=== PATIENT | female | born 1990 | race Caucasian/White ===

== ENCOUNTER 2019-04-08 12:02 | Emergency (ER) | payer OTHER, MEDICAID ==
[~2019-04-08] VITALS: Ht 149.9 cm; Wt 72.1 kg
[2019-04-08 13:16] VITALS: BP 145/80
== END 2019-04-08 13:17 | disposition home or self-care (01) ==
LOC: M.ERS 12:02
DX: S60.022A Contusion of left index finger without damage to nail, initial encounter (principal); S60.032A Contusion of left middle finger without damage to nail, initial encounter; Z98.890 Other specified postprocedural states; Z88.0 Allergy status to penicillin; Z88.1 Allergy status to other antibiotic agents; Z88.8 Allergy status to other drugs, medicaments and biological substances; W23.0XXA Caught, crushed, jammed, or pinched between moving objects, initial encounter; Y93.89 Activity, other specified; Y92.89 Other specified places as the place of occurrence of the external cause; Y99.8 Other external cause status

== ENCOUNTER 2020-08-30 09:41 | Emergency (ER) | payer OTHER, MEDICAID ==
[~2020-08-30] VITALS: Ht 149.9 cm; Wt 79.4 kg
[2020-08-30] MEDS ORDERED: FLEXERIL PO (11:02)
[2020-08-30 11:12] VITALS: BP 125/65
== END 2020-08-30 11:13 | disposition home or self-care (01) ==
LOC: M.ERS 09:41
DX: S46.811A Strain of other muscles, fascia and tendons at shoulder and upper arm level, right arm, initial encounter (principal); M77.11 Lateral epicondylitis, right elbow; Z98.890 Other specified postprocedural states; Z88.1 Allergy status to other antibiotic agents; Z88.8 Allergy status to other drugs, medicaments and biological substances; X58.XXXA Exposure to other specified factors, initial encounter; Y93.89 Activity, other specified; Y92.89 Other specified places as the place of occurrence of the external cause; Y99.8 Other external cause status

== ENCOUNTER 2020-11-07 09:27 | Emergency (ER) | payer OTHER, MEDICAID ==
[~2020-11-07] VITALS: Ht 149.9 cm; Wt 65.8 kg
[~2020-11-07 09:27] MED LIST: FLEXERIL PO
[2020-11-07 09:56] LABS: URINE BLOOD 3+ (Negative); URINE CLARITY CLOUDY; URINE COLOR RED; URINE GLUCOSE-RANDOM TRACE (Negative); URINE KETONES TRACE (Negative); URINE LEUKOCYTES 2+ (Negative); URINE NITRITE POSITIVE (Negative); URINE PROTEIN 3+ (Negative); URINE SPECIFIC GRAVITY 1.025 (1.005-1.030)
[2020-11-07 10:03] LABS: ICTOTEST (BILI CONFIRMATORY) Positive (Negative); URINE BILIRUBIN 3+ (Negative)
[2020-11-07 10:04] LABS: CASTS None Seen /LPF (None Seen); CRYSTALS None Seen /LPF (None Seen); SQUAMOUS 0-3 Few /LPF (0-3); URINE RBC >20 Many /HPF (0-2); URINE WBC 6-15 Few /HPF (0-5)
[2020-11-07 10:20] LABS: ABSOLUTE EOSINOPHILS 0.1 thou/uL (0.0-0.7); ABSOLUTE LYMPHOCYTES 2.9 thou/uL (0.8-5.3); ABSOLUTE MONOCYTES 0.5 thou/uL (0.0-1.2); ABSOLUTE NEUTROPHILS 4.5 thou/uL (1.6-8.1); BASOPHILS 0.5 %; EOSINOPHILS 1.8 %; HEMATOCRIT 37.3 % (37.0-47.0); HEMOGLOBIN 12.1 gm/dL (12.0-15.0); LYMPHOCYTES 35.9 %; MCH 24.7 pg (26.0-34.0); MCHC 32.5 g/dL (28.0-37.0); MCV 76.1 fL (80.0-100.0); MONOCYTES 5.8 %; MPV 8.1 fl. (7.2-11.1); NUCLEATED RBCS 0 /100WBC; PLATELET COUNT* 218 thou/uL (150-400); RDW-CV 15.5 % (10.5-14.5); WBC 8.1 thou/uL (4.0-11.0)
[2020-11-07 10:32] LABS: CALCIUM 8.7 mg/dL (8.5-10.1); CREATININE 0.7 mg/dL (0.6-1.3); POTASSIUM 3.8 mmol/L (3.5-5.1)
[2020-11-07 10:36] LABS: ALBUMIN 3.4 g/dL (3.4-5.0); TOTAL BILIRUBIN 0.2 mg/dL (<0.1-1.0); TOTAL PROTEIN 7.8 g/dL (6.4-8.2)
[2020-11-07] MEDS ORDERED: ZOFRAN ODT4 MG PO (12:35)
[2020-11-07] MEDS ORDERED: CEPHALEXIN 250250 M1 PO (12:35)
[2020-11-07 12:44] VITALS: BP 143/92
== END 2020-11-07 12:45 | disposition home or self-care (01) ==
LOC: M.ERS 09:27
PROVIDERS: Emergency Medicine
DX: N12 Tubulo-interstitial nephritis, not specified as acute or chronic (principal); Z98.890 Other specified postprocedural states; Z88.1 Allergy status to other antibiotic agents; Z88.8 Allergy status to other drugs, medicaments and biological substances

== ENCOUNTER 2020-11-19 02:10 | Emergency (ER) | payer OTHER, MEDICAID ==
[~2020-11-19] VITALS: Ht 149.9 cm; Wt 74.8 kg
[~2020-11-19 02:10] MED LIST changes: +CEPHALEXIN 250250 M1 PO; +ZOFRAN ODT4 MG PO
[2020-11-19 03:42] VITALS: BP 144/78
== END 2020-11-19 03:42 | disposition home or self-care (01) ==
LOC: M.ERS 02:10
DX: U07.1 COVID-19 (principal); Z88.1 Allergy status to other antibiotic agents; Z88.8 Allergy status to other drugs, medicaments and biological substances; Z98.890 Other specified postprocedural states

== ENCOUNTER 2020-11-24 16:55 | Emergency (ER) | payer OTHER, MEDICAID ==
[~2020-11-24] VITALS: Ht 149.9 cm; Wt 72.6 kg
[2020-11-24 17:55] LABS: ABSOLUTE LYMPHOCYTES 1.7 thou/uL (0.8-5.3); ABSOLUTE MONOCYTES 0.3 thou/uL (0.0-1.2); ABSOLUTE NEUTROPHILS 3.9 thou/uL (1.6-8.1); BASOPHILS 0.6 %; HEMATOCRIT 35.7 % (37.0-47.0); HEMOGLOBIN 11.6 gm/dL (12.0-15.0); LYMPHOCYTES 28.2 %; MCH 24.5 pg (26.0-34.0); MCHC 32.5 g/dL (28.0-37.0); MCV 75.2 fL (80.0-100.0); MONOCYTES 5.5 %; MPV 8.3 fl. (7.2-11.1); NUCLEATED RBCS 0 /100WBC; PLATELET COUNT* 151 thou/uL (150-400); POLYS 65.7 %; RBC 4.75 mil/uL (4.20-5.00); RDW-CV 15.9 % (10.5-14.5)
[2020-11-24 18:15] LABS: CALCIUM 8.4 mg/dL (8.5-10.1); POTASSIUM 3.6 mmol/L (3.5-5.1)
[2020-11-24 18:23] LABS: ALBUMIN 3.6 g/dL (3.4-5.0); MAGNESIUM 2.1 mg/dL (1.8-2.4); TOTAL BILIRUBIN 0.4 mg/dL (<0.1-1.0); TOTAL PROTEIN 7.3 g/dL (6.4-8.2)
[2020-11-24] MEDS ORDERED: TESSALON PERLE100 M1 PO (18:32)
[2020-11-24] MEDS ORDERED: ZOFRAN ODT4 MG DISSOLVE (18:32)
[2020-11-24] MEDS ORDERED: FLEXERIL PO (18:32)
[2020-11-24 18:36] VITALS: BP 123/52
--- NOTE | 2020-11-25 12:11 | EKG ---
[place] [address] ELECTROCARDIOGRAM REPORT Name: RAMON RIOJAS Room: 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1990 Requested By: Wild Arthur Order Number: [id number] MD: Julito Vega Measurements Intervals [place] Rate: 109 P: 31 MI: 148 QRS: 45 QRSD: 75 T: 21 QT: 356 QTc: 480 Interpretive Statements Sinus tachycardia Low voltage, precordial leads Borderline T abnormalities, anterior leads Borderline prolonged QT interval No previous ECG available for comparison Electronically Signed On 11-25-2020 12:11:18 CDT by Julito Vega [email or web address] <ELECTRONICALLY SIGNED> By: Julito Vega MD, [facility] 11/25/20 1211 1748 1748 Julito Vega MD, [facility] /EPI
== END 2020-11-24 18:42 | disposition home or self-care (01) ==
LOC: M.ERS 16:55
PROVIDERS: Emergency Medicine Emergency Medical Services
DX: U07.1 COVID-19 (principal); Z88.1 Allergy status to other antibiotic agents; Z88.8 Allergy status to other drugs, medicaments and biological substances